=== PATIENT | female | born 1985 | race Caucasian/White ===

== ENCOUNTER 2022-02-19 19:49 | Emergency (ER) | payer MEDICAID ==
[2022-02-19] MEDS ORDERED: Take Home: Phenazopyridine 95 MG Tab, 4 Tab Pack ONE (20:50)
[2022-02-19] MEDS ORDERED: Take Home: Nitrofurantoin Monohydrate/Macrocrystalline 100 MG, 2 Cap Pack PO ONE (20:50)
[2022-02-19] MEDS ORDERED: Fluconazole 100 MG Tab PO ONE (20:56)
== END 2022-02-19 21:15 | disposition home or self-care (01) ==
LOC: VM.ED 19:49
DX: N39.0 Urinary tract infection, site not specified (principal); B37.9 Candidiasis, unspecified
CPT/HCPCS: 81001; 87086; 87088; 87186; 99283; A9270-GY